=== PATIENT | male | born 1995 | race Caucasian/White ===

== ENCOUNTER 2025-05-26 13:12 | Emergency (ER) | payer OTHER, SELFPAY ==
[2025-05-26] VITALS (7 sets, daily range): BP systolic 108–127; BP diastolic 58–79; BMI 23.5
--- NOTE | 2025-05-26 14:30 | ED.GENMED ---
History of Present Illness
General
Chief Complaint: Withdrawal Symptoms
Source: patient and family
Exam Limitations: none
Time Seen by Provider: 05/26/25 13:49
Nursing documentation reviewed up to this point in time: agreed with
History of Present Illness
History of Present Illness:
Patient is a 29-year-old male with history of asthma, polysubstance abuse who presents to the emergency department with concerns of benzodiazepine and cocaine withdrawal. Patient presents seeking detox/rehab placement as he states he uses 6 bars of
Xanax a day as well as 3 g of cocaine. Patient states that he last used at some point yesterday 'he thinks'. Patient concerned about possible withdrawal. Patient and his mom have been in contact with multiple facilities over the past few days and
are planning to go to [facility] for detox/rehab. He has gone there detox at that facility in the past.
Patient's mom brought him to the emergency department today mainly due to concerns of an asthma exacerbation. She reports that he has been complaining of chest tightness and has had notable wheezing over the past few days. He does have a rescue
inhaler which he uses however this has not been improving his symptoms.
Patient denies any fever, productive cough, chest pain, back pain, lower extremity swelling.
Past History
Past History
ED Past Medical History: Asthma; Negative HTN, Hypercholesterolemia or NIDDM
ED Past Surgical History: None
Social History
Tobacco: Smoker
Alcohol: Occasional
Drug: Former user (opioid addiction - on suboxone) and Marijuana (medical marijuana)
Personal: Single
Living: with family
Employment: Not employed
Review of Systems
Review of Systems
Allergies reviewed?: Yes
All Other Systems: ROS reviewed and negative except as documented in HPI and ROS
Phy Exam
Physical Exam
Physical Exam:
Vitals: Patient's vital signs are stable. Afebrile
General: Patient is well appearing, no acute distress. Nontoxic appearing
Skin: Warm and dry, no rashes or lesions
Head: Normocephalic, atraumatic
Eyes: Sclera nonicteric. EOMs intact. No nystagmus.
Throat: Protecting airway
Neck: Normal ROM, no cervical spine tenderness, no meningismus
Cardiac: Regular rate and rhythm, no murmurs.
Pulm: No respiratory distress. Not hypoxic or tachypneic. Decreased breath sounds with bilateral expiratory wheeze.
Abdomen: No abdominal tenderness.
Extremities: No evidence of cyanosis or edema. Well-perfused with normal capillary refill
Neuro: AAOx3. Grossly intact.
Psychiatric: Normal affect.
Course
Orders/Labs/Results
Orders:
Orders
05/26/25 14:20
Ipratropium/Albuterol Sulfate [Duoneb] 3 ml INH R NOW STA
Prednisone [Deltasone] 50 mg PO NOW STA
05/26/25 15:11
Ipratropium/Albuterol Sulfate [Duoneb] 3 ml INH R NOW STA
05/26/25 16:29
CR Chest - 2 Views Urgent
Comment:
Reason For Exam: SOB, hx asthma
05/26/25 17:11
Lorazepam [Ativan] 1 mg PO NOW STA
05/26/25 17:30
Lorazepam [Ativan] 2 mg PO NOW STA
05/26/25 17:51
Fentanyl, Urine Urgent
Urine Drug Abuse Screen Urgent
Date Specimen was Collected: 05/26/25
Time Specimen was Collected: 17:50
Abnormal Lab Results
05/26/25
17:51
Ur Buprenorphine Positive H
(Negative)
Ur Barbiturates Screen Positive H
(Negative)
U Methamphetamines Scrn Positive H
(Negative)
Urine Cocaine Screen Positive H
(Negative)
U Marijuana (THC) Screen Positive H
(Negative)
Vital Signs
Initial and Last Documented VS:
Initial Vital Signs
Temp Pulse Resp BP Pulse Ox
97.7 F 95 16 108/79 97
05/26/25 13:16 05/26/25 13:16 05/26/25 13:16 05/26/25 13:16 05/26/25 13:16
Last Documented Vital Signs
Temp Pulse Resp BP Pulse Ox
98 F 54 16 113/68 99
05/26/25 18:48 05/26/25 18:48 05/26/25 18:48 05/26/25 18:48 05/26/25 18:48
MDM/Problems Addressed
Differential Diagnosis Includes:
Not limited to: Asthma exacerbation, bronchitis, pneumothorax, substance abuse, benzodiazepine withdrawal, etc.
MDM/Problems Addressed:
29 year-old male with history asthma, polysubstance abuse presenting with suspected asthma exacerbation and seeking detox/rehab placement. Patient reports both benzodiazepine as well as cocaine abuse � seeking rehab placement. Last used yesterday?
No associated fever, chest pain, productive cough.
On arrival � patient has stable vital signs, he is afebrile and in no respiratory distress.
No evidence of current withdrawal on exam. Do you suspect asthma exacerbation. No rash, murmur or evidence of infectious process at this time.
Will give you duoneb, IV steroids, obtain chest x-ray. Will consult [facility] for detox/rehab.
Update: Patient reports significant improvement in symptoms following duoneb treatments as well as IV steroids. Lungs clear without wheeze. Vital signs remain stable.
After discussion with [facility] � patient is planning to go to [facility] for detox/rehab as they have an open bed. He is planning to drive by private vehicle later this evening. I did discuss with admissions at [facility] who do request
UDS.
Patient is becoming mildly agitated, possibly exhibiting mild withdrawal symptoms however vital signs remain normal. Will give PO ativan to treat symptoms pending arrival at detox tonight at [facility].
Ultimately - suspect mild asthma exacerbation. Symptoms did improve following bronchodilators and steroids in emergency department. Do not feel admission indicated. Withdrawal symptoms very mild and feel stable for outpatient detox/rehab. Will send
short course oral steroids as well as bronchodilators, nebulizer treatment to pharmacy.
Patient discharged home with Mom in sable condition with plan for detox/rehab tonight. Return precautions discussed.
Chronic conditions affecting care:
Asthma, polysubstance abuse
Acute Exacerbation and/or Progression of Chronic Illness:
Acute asthma exacerbation
*Radiology
Radiology exam reviewed: preliminary read by ED provider and radiology read reviewed
*Pulse Oximetry
SaO2: 96
Oxygen Mode of Delivery: Room air
Patient hypoxic: no
*EKG
Interpreted by ED Provider?: NA
*Ice Plant Operator Interpretation
Rate: normal
Interpretation: normal
Heart Rate: 64
Rhythm: sinus
*Critical Care Note
Total Time (30-74mins, 75-104mins- exclusive of procedures): Not Applicable
ED Attending Note
-
Portions of this chart may have been created with voice recognition software.� Occasional wrong word or��sound alike� substitutions may have occurred due to the inherent limitations of voice recognition software.
Discharge Plan
Departure
Patient Disposition: Home (Routine Discharge)
Date of Disposition: 05/26/25
Time of Disposition: 18:44
Patient with high blood pressure during this ER visit?: No
Discharge Problem:
Acute asthma exacerbation, Polysubstance abuse
Instructions: Drug Misuse and Addiction (DC), Asthma in adults - ED (DC), Asthma action plan for adults - ED (DC), BLOOD PRESSURE
Prescriptions:
New
prednisone 50 mg tablet
50 mg PO DAILY Qty: 4 0RF
(DME) nebulizers Misc
See Rx Instructions .Route Qty: 1 0RF
Rx Instructions:
As directed
albuterol sulfate [Ventolin HFA] 90 mcg/actuation HFA aerosol inhaler
2 puff inhalation Q6H PRN (Reason: shortness of breath or wheezing) Qty: 8.5 2RF
albuterol sulfate 2.5 mg /3 mL (0.083 %) solution for nebulization
2.5 mg inhalation Q6H PRN (Reason: shortness of breath or wheezing) Qty: 90 0RF
No Action
fluticasone propion-salmeterol [Advair Diskus] 1 DISK blister with device
1 puff inhalation BID
albuterol sulfate 1 PUFF HFA aerosol inhaler
1 puff inhalation DAILY
Adderall:
30 mg PO DAILY
SUBOXONE 8 MG-2 MG SL FILM
2 film sublingual DAILY
clindamycin HCl 300 MG capsule
300 mg PO Q6 Qty: 40 0RF
cephalexin 500 mg capsule
500 mg PO QID 7 Days Qty: 28 0RF
sulfamethoxazole-trimethoprim [Bactrim DS] 800-160 mg tablet
1 tab PO BID 7 Days Qty: 14 0RF
Referrals:
NONE,* [Family Provider, Internal Medicine]
Activity Restrictions/Additional Instructions:
RETURN TO THE EMERGENCY DEPARTMENT WITH ANY FEVER, PRODUCTIVE COUGH, CHEST PAIN, SHORTNESS OF BREATH/DIFFICULTY BREATHING, SIGNS OF SEVERE WITHDRAWAL, WORSENING CURRENT SYMPTOMS, OR ANY OTHER CONCERNS
- You were treated for an asthma exacerbation in the emergency department today. You were given albuterol breathing treatments, IV Decadron
- A prescription for oral steroids, a nebulizer machine as well as albuterol nebulizing solution/ inhalers have been sent to your pharmacy. Please take as directed.
- As discussed�you were given a dose of oral Ativan for your withdrawal symptoms today. There is a bed available at [facility] where you will be going tonight for further treatment of your substance abuse/withdrawal.
- Follow-up with primary care for further evaluation/management for continued management of your asthma.
Monitor your symptoms closely and return to the emergency department with any acute worsening/new symptoms or any other concerns
Interventions
Interventions:
*Risk Screen - Suicide Last Done: 05/26/25 13:16
*General Assessment Last Done: 05/26/25 13:44
*Neglect/Abuse Screening Last Done: 05/26/25 13:16
*ED- Fall Risk Assessment Last Done: 05/26/25 13:44
*Nursing Disposition Last Done: 05/26/25 18:48
ED- Neurological Assessment Last Done: 05/26/25 13:44
ED-Psychological Assessment Last Done: 05/26/25 13:44
Discharge Date and Time
Discharge Date/Time: 05/26/25 18:48
Print Language: URDU
[2025-05-26] MEDS: DELTASONE 50 MG PO (14:41)
[2025-05-26] MEDS: DUONEB 3 ML INH ×2 (14:41→15:19)
[2025-05-26] MEDS: ATIVAN 2 MG PO (18:13)
== END 2025-05-26 18:48 | disposition home or self-care (01) ==
LOC: EMR 13:12
PROVIDERS: Physician Assistant; EMERGENCY PHYSICIAN Emergency Medicine
DX: J45.901 Unspecified asthma with (acute) exacerbation (principal); F14.23 Cocaine dependence with withdrawal; R45.1 Restlessness and agitation; F19.10 Other psychoactive substance abuse, uncomplicated; F12.90 Cannabis use, unspecified, uncomplicated; F41.9 Anxiety disorder, unspecified; F90.9 Attention-deficit hyperactivity disorder, unspecified type; F17.200 Nicotine dependence, unspecified, uncomplicated; Z88.8 Allergy status to other drugs, medicaments and biological substances
CPT/HCPCS: 99284; 94640 ×2; 71046; 80306; 80307